=== PATIENT | male | born 1975 | race Hispanic/Latino ===

== ENCOUNTER 2024-11-11 23:58 | Emergency (ER) | payer SELFPAY ==
[2024-11-12 00:03] VITALS: BP 152/93
[2024-11-12 00:20] VITALS: BMI 33.8
--- NOTE | 2024-11-12 00:43 | ED.GENMED ---
History of Present Illness
General
Chief Complaint: Skin Problem
Source: patient
Exam Limitations: none
Time Seen by Provider: 11/12/24 00:23
Nursing documentation reviewed up to this point in time: agreed with
History of Present Illness
History of Present Illness:
Note:
CHIEF COMPLAINT(S)
Rash on the back and chest, described as painful and itchy.
HISTORY OF PRESENT ILLNESS
The patient is a 49-year-old male presenting with a rash that was first noticed 2 days ago. The rash initially appeared on the back and chest and has since progressed. The patient denies any prior episodes of a similar rash. There is a possibility
of the rash being caused by contact with branches during outdoor work; however, the patient was wearing a shirt at that time. The rash is accompanied by pain localized to one side of the back. The patient denies any difficulty breathing and has not
experienced any fevers. The patient has not been vaccinated against shingles. He denies any new moisturizers, laundry detergent, sunscreen. He denies any contact with any allergens. He has no visual complaints.
PHYSICAL EXAM
General: Alert, no acute distress.
Skin: Vesicular rash noted along the left T6 dermatome anteriorly and posteriorly
Head: Normocephalic, atraumatic.
Neck: Supple, trachea midline.
Eye, Ears, Nose, Mouth and Throat: Oral mucosa moist.
Cardiovascular: Normal peripheral perfusion, No edema.
Respiratory: Respirations are non-labored.
Gastrointestinal: Abdomen nondistended.
Back: Rash present; normal range of motion, normal alignment.
Musculoskeletal: Normal ROM, normal strength.
Neurological: Alert and oriented to person, place, time, and situation, No focal neurological deficit observed.
Psychiatric: Cooperative, appropriate mood & affect.
PLAN
The patient will be treated with Valacyclovir (Valtrex) to address the herpes zoster infection. Additionally, medication will be provided to manage itching. The treatment requires multiple days of medication adherence. The patient will be monitored
for response to treatment.
DIFFERENTIAL DIAGNOSIS
The Differential Diagnosis includes, in no particular order and is not limited to:
1. Herpes Zoster (Shingles)
2. Contact Dermatitis
3. Herpes Simplex Virus Infection
4. Allergic Reaction
5. Psoriasis
6. Eczema
7. Systemic Lupus Erythematosus
8. Dermatomyositis
9. Tinea Infection
10. Bacterial Skin Infection
CHART REVIEW
-Reviewed discharge summary from 07/18/11 patient seen for gallstone pancreatitis
MDM/DISPOSITION
49 y/o male presents to the ER today with a painful rash to his chest/abdomen wrapping around to the back.
Physical exam reveals vesicular rash noted along the left T6 dermatome anteriorly and posteriorly with erythema consistent with shingles.
He presents within 72 hours of onset.
Will initiate Valtrex and give Tylenol for pain.
No signs of [place] sauceda syndrome and no concern for zoster ophthalmicus.
Patient stable for discharge. Discussed follow up with PCP and strict return precautions.
Past History
Past History
ED Past Medical History: None
ED Past Surgical History: None
Social History
Tobacco: Non-smoker
Alcohol: None
Drug: None
Personal:
Living: with family
Family History
Family History: Negative Early CAD
Review of Systems
Review of Systems
All Other Systems: ROS reviewed and negative except as documented in HPI and ROS
Phy Exam
Physical Exam
Physical Exam:
see hpi
Course
Orders/Labs/Results
Orders:
Orders
11/12/24 00:43
Valacyclovir HCl [Valtrex] 1,000 mg PO DAILY ONE
11/12/24 00:44
Acetaminophen [Tylenol] 1,000 mg PO NOW STA
Vital Signs
Initial and Last Documented VS:
Initial Vital Signs
Temp Pulse Resp BP Pulse Ox
98.5 F 71 20 152/93 99
08/27/25 00:03 11/12/24 00:03 11/12/24 00:03 11/12/24 00:03 11/12/24 00:03
Last Documented Vital Signs
Temp Pulse Resp BP Pulse Ox
98.2 F 85 20 112/73 97
11/12/24 00:22 11/12/24 01:19 11/12/24 01:19 11/12/24 01:00 11/12/24 01:15
*Pulse Oximetry
SaO2: 97
Oxygen Mode of Delivery: Room air
Patient hypoxic: no
*Critical Care Note
Total Time (30-74mins, 75-104mins- exclusive of procedures): Not Applicable
ED Attending Note
-
Portions of this chart may have been created with voice recognition software.� Occasional wrong word or��sound alike� substitutions may have occurred due to the inherent limitations of voice recognition software.
Discharge Plan
Departure
Patient Disposition: Home (Routine Discharge)
Date of Disposition: 11/12/24
Time of Disposition: 01:11
Patient with high blood pressure during this ER visit?: Yes
Condition: Good
Discharge Problem:
Shingles
Instructions: Shingles, BLOOD PRESSURE
Prescriptions:
New
valacyclovir [Valtrex] 1 gram tablet
1,000 mg PO Q8H 7 Days Qty: 21 0RF
No Action
oxycodone-acetaminophen 5 MG/325 MG tablet
1 tab PO Q6HPRN PRN (Reason: pain) Qty: 12 0RF
Activity Restrictions/Additional Instructions:
You can take Tylenol and Motrin as needed for pain.
Valtrex has been sent to your pharmacy. Please take 1 g every 8 hours for 7 days starting tomorrow.
Please follow-up with your primary care provider. PLEASE RETURN TO THE ER SHOULD YOU DEVELOP FACIAL RASH, VISUAL CHANGES, TROUBLE BREATHING, FEVERS OR CHILLS, ACUTE WORSENING OF THE RASH, OR ANY OTHER SIGNS OR SYMPTOMS WORRISOME TO YOU.
Interventions
Interventions:
*Risk Screen - Suicide Last Done: 11/12/24 00:03
*General Assessment Last Done: 11/12/24 00:03
*Neglect/Abuse Screening Last Done: 11/12/24 00:03
*ED- Fall Risk Assessment Last Done: 11/12/24 00:03
*ED COVID-19 Vaccine History Last Done: 11/12/24 00:03
*Nursing Disposition Last Done: 11/12/24 01:25
ED-Skin Assessment Last Done: 11/12/24 00:24
Discharge Date and Time
Discharge Date/Time: 11/12/24 01:30
Print Language: MALTESE
[2024-11-12 01:00] VITALS: BP 112/73
[2024-11-12] MEDS: TYLENOL 1000 MG PO (01:17)
[2024-11-12] MEDS: VALTREX 1000 MG PO (01:18)
== END 2024-11-12 01:30 | disposition home or self-care (01) ==
LOC: EMR 23:58
PROVIDERS: EMERGENCY PHYSICIAN Student in an Organized Health Care Education/Training Program
DX: B02.9 Zoster without complications (principal); R03.0 Elevated blood-pressure reading, without diagnosis of hypertension
CPT/HCPCS: 99283